=== PATIENT | male | born 1965 | race Caucasian/White ===

== ENCOUNTER 2021-11-18 03:27 | Emergency (ER) | payer MEDICARE, OTHER ==
[2021-11-18 03:34] VITALS: RESP 16; TEMP 98.7
[2021-11-18] MEDS ORDERED: PERMETHRIN 5% CREAM 60 GM TUBE TOPICAL ONE (04:00)
--- NOTE | 2021-11-18 04:23 | ED ---
Male Urogenital HPI - General Chief complaint: Recheck/Abnormal Lab/Rx Stated complaint: STD test Time Seen by Provider: 11/18/21 03:45 Source: patient, RN notes reviewed, old records reviewed Mode of arrival: ambulatory Limitations: no limitations - History of Present Illness Initial comments: This is a 56-year-old male coming. Testing. Has recent history of what he believes are clear ER lice or crabs of the Groin area. Patient does have history of a STD/STI. No current fevers or dysuria no drainage. No rashes MD Complaint: dysuria -: days(s) Location: penis, abdomen Radiation: none Severity: moderate Severity scale (1-10): 7 Quality: sharp Consistency: constant Improves with: none Worsens with: none lifting, indwelling catheter Reports: denies other symptoms - Related Data Allergies Allergy/AdvReac Type Severity Reaction Status Date / Time No Known Allergies Allergy Verified 11/18/21 03:31 Review of Systems ROS Statement: Those systems with pertinent positive or pertinent negative responses have been documented in the HPI. ROS Other: All systems not noted in ROS Statement are negative. Past Medical History Past Medical History: No Reported History History of Any Multi-Drug Resistant Organisms: None Reported Past Surgical History: Orthopedic Surgery Additional Past Surgical History / Comment(s): shoulder Past Psychological History: No Psychological Hx Reported Smoking Status: Light tobacco smoker Past Alcohol Use History: None Reported Past Drug Use History: None Reported General Exam Limitations: no limitations General appearance: alert, in no apparent distress Head exam: Present: atraumatic, normocephalic, normal inspection Eye exam: Present: normal appearance, PERRL, EOMI. Absent: scleral icterus, conjunctival injection, periorbital swelling ENT exam: Present: normal exam, mucous membranes moist Neck exam: Present: normal inspection. Absent: tenderness, meningismus, lymphadenopathy Respiratory exam: Present: normal lung sounds bilaterally. Absent: respiratory distress, wheezes, rales, rhonchi, stridor Cardiovascular Exam: Present: regular rate, normal rhythm, normal heart sounds. Absent: systolic murmur, diastolic murmur, rubs, gallop, clicks GI/Abdominal exam: Present: soft, normal bowel sounds. Absent: distended, tenderness, guarding, rebound, rigid Extremities exam: Present: normal inspection, full ROM, normal capillary refill. Absent: tenderness, pedal edema, joint swelling, calf tenderness Back exam: Present: normal inspection Neurological exam: Present: alert, oriented X3, CN II-XII intact Psychiatric exam: Present: normal affect, normal mood Skin exam: Present: warm, dry, intact, normal color. Absent: rash Course Vital Signs 11/18/21 11/18/21 03:32 05:14 Temperature 98.7 F Pulse Rate 70 60 Respiratory 16 16 Rate Blood Pressure 166/92 142/94 O2 Sat by Pulse 100 96 Oximetry - Reevaluation(s) Reevaluation #1: 11/18/21 Medical record is reviewed Reevaluation #2: 11/18/21 Patient informed results and questions answered Medical Decision Making - Medical Decision Making 56 male presenting for STI testing. Patient also has evidence of lice or cramps. Patient given treatment will test for STD and can be discharged home - Lab Data Lab Results 11/18/21 11/18/21 Range/Units 04:17 04:17 Urine Color Yellow Urine Appearance Clear (Clear) Urine pH 5.5 (5.0-8.0) Ur Specific [place] 1.018 (1.001-1.035) Urine Protein Negative (Negative) Urine Glucose (UA) Negative (Negative) Urine Ketones Negative (Negative) Urine Blood Negative (Negative) Urine Nitrite Negative (Negative) Urine Bilirubin Negative (Negative) Urine Urobilinogen <2.0 (<2.0) mg/dL Ur Leukocyte Esterase Negative (Negative) C.trachomatis RNA See Comment Chlamydia/GC DNA Source Urine-First Catch N.gonorrhoeae RNA See Comment Disposition Clinical Impression: STI (sexually transmitted infection) Disposition: HOME SELF-CARE Condition: Good Instructions (If sedation given, give patient instructions): Sexually Transmitted Diseases (ED) Is patient prescribed a controlled substance at d/c from ED?: No Referrals: None,Stated [Primary Care Provider] - 1-2 days Time of Disposition: 04:30
[2021-11-18 04:24] LABS: Appearance,Urine Clear (Clear); Bilirubin,Urine Negative (Negative); Blood,Urine Negative (Negative); Color,Urine Yellow; Glucose,Urine (UA) Negative (Negative); Ketones,Urine Negative (Negative); Leukocyte Esterase,Urine Negative (Negative); Nitrite,Urine Negative (Negative); PH, Urine 5.5 (5.0-8.0); Protein,Urine Negative (Negative); Specific Gravity,Urine 1.018 (1.001-1.035); Urobilinogen,Urine <2.0 mg/dL (<2.0)
[2021-11-18 05:15] VITALS: BP 142/94; PULSE 60
== END 2021-11-18 05:15 | disposition home or self-care (01) ==
LOC: EC 03:27
DX: A64 Unspecified sexually transmitted disease (principal); F17.200 Nicotine dependence, unspecified, uncomplicated
CPT/HCPCS: 81003; 87491; 87591; 99283